=== PATIENT | female | born 1985 | race Caucasian/White ===

== ENCOUNTER 2021-05-13 21:32 | Emergency (ER) | payer BC ==
[2021-05-13 21:51] VITALS: BP 159/87; PULSE 74; TEMP 99.5; BMI 46.7
[2021-05-13] MEDS ORDERED: predniSONE 20 MG TABLET (UD) PO ONE (21:54)
[2021-05-13] MEDS ORDERED: predniSONE 20 MG TABLET (UD) ONE (22:01)
== END 2021-05-13 23:58 | disposition home or self-care (01) ==
LOC: FER 21:32
DX: T78.49XA Other allergy, initial encounter (principal)
CPT/HCPCS: 99283-25

== ENCOUNTER 2022-03-04 09:51 | Emergency (ER) | payer BC, OTHER ==
[2022-03-04 10:00] VITALS: BP 155/99; PULSE 67; RESP 18; TEMP 97.8; BMI 46.7
== END 2022-03-04 11:00 | disposition home or self-care (01) ==
LOC: FER 09:51
DX: T78.40XA Allergy, unspecified, initial encounter (principal)
CPT/HCPCS: 99281-25

== ENCOUNTER 2022-09-29 05:17 | Emergency (ER) | payer BC, OTHER ==
[2022-09-29 05:26] VITALS: BP 150/106; PULSE 85; RESP 18; TEMP 99.2; BMI 45.1
[2022-09-29] MEDS ORDERED: ONDANSETRON 4 MG/2 ML VIAL IVPUSH ONE (06:09)
[2022-09-29] MEDS ORDERED: ONDANSETRON 4 MG/2 ML VIAL ONE (06:11)
[2022-09-29] MEDS ORDERED: ACETAMINOPHEN 1000 MG/100 ML BAG IVPB ONE (06:26)
[2022-09-29] MEDS ORDERED: ACETAMINOPHEN INJECTION 100 ML IVPB ONE (06:27)
[2022-09-29 07:11] LABS: HCG,QUALITATIVE URINE Negative
[2022-09-29 07:23] LABS: HEMATOCRIT 38.3 % (32.4-45.2); HEMOGLOBIN 12.4 G/dL (10.7-15.3); MCH 20.6 pg (25.7-33.7); MCHC 32.4 g/dl (32.0-36.0); MEAN CELL VOLUME 63.6 fl (80-96); MEAN PLT VOLUME 8.4 fl (7.5-11.1); PLATELET COUNT 291.3 10^3/uL (134-434); RBC 6.02 10^6/uL (3.60-5.2); RDW 18.3 % (11.6-15.6); WHITE BLOOD COUNT 12.8 10^3/uL (4.0-10.8)
[2022-09-29 07:32] LABS: ALBUMIN 3.8 g/dl (3.4-5.0); BILIRUBIN,TOTAL 0.7 mg/dl (0.2-1); CREATININE 0.7 mg/dl (0.55-1.3); TOT PROT 7.5 g/dl (6.4-8.2)
[2022-09-29] MEDS ORDERED: KETOROLAC TROMETHAMINE 15 MG/ML VIAL ONE (07:35)
[2022-09-29] MEDS ORDERED: KETOROLAC TROMETHAMINE 15 MG/ML VIAL IVPUSH ONE (07:35)
[2022-09-29 08:10] LABS: EPITHELIAL CELLS MANY /hpf
[2022-09-29 08:11] LABS: URINE MUCUS 1+
[2022-09-29 09:43] LABS: ANISOCYTOSIS 1+; PLATELET ESTIMATE ADEQUATE
== END 2022-09-29 08:44 | disposition home or self-care (01) ==
LOC: FER 05:17
PROC: 3E0333Z Introduction of Anti-inflammatory into Peripheral Vein, Percutaneous Approach (ICD-10-PCS; principal; 2022-09-29)
PROC: 3E0333Z Introduction of Anti-inflammatory into Peripheral Vein, Percutaneous Approach (ICD-10-PCS; 2022-09-29)
DX: M13.861 Other specified arthritis, right knee (principal)
CPT/HCPCS: 36415; 80053; 81003; 81015; 84703; 85027; 85651; 86140; 86618; 99284-25